=== PATIENT | male | born 1985 | race Caucasian/White ===

== ENCOUNTER 2020-05-10 21:59 | Emergency (ER) | payer SELFPAY ==
[~2020-05-10] VITALS: Ht 185.4 cm; Wt 102.1 kg
[~2020-05-10 21:59] MED LIST: ACETAMINOPHEN PO; ATIVAN1 MG PO; CEPHALEXIN500 MG PO; CLINDAMYCIN HC300 MG PO; CYCLOBENZAPRINE10 MG PO; FLEXERIL10 MG PO; HYDROCODON-ACE1 EA10 PO; IBUPROFEN800 MG PO; MEDROL4 M1 PO; MELOXICAM15 MG PO; METOPROLOL TART25 MG PO; MOBIC7.5 MG PO; NAPROXEN500 MG PO; NEURONTIN100 MG PO; NORCO 5-325 TA1 EACH PO; OMEPRAZOLE20 MG PO; ONDANSETRON ODT4 MG SL; PROMETHAZINE12.5 M1 PO; TOPROL XL25 MG PO; TRAMADOL HCL50 MG PO; TYLENOL325 MG PO; ULTRAM50 MG PO; VICODIN 5-5001 EACH PO; XANAX0.5 MG PO
--- OUTSIDE RECORDS SUMMARY | 2020-05-10 22:02 | XMS ---
PreManage Notification: LAURIE SINGH Security Bundler Events 1 event(s) in the past 18 months Most recent security events: Elopement at [facility] 05/04/2020 11:42 - Other Details: PATIENT LWBS. CRITERIA MET - Group Notification - [facility] - 2 Visits in 30 Days CARE PROVIDERS PETE ORNELAS Current PHONE: [phone] Edilia has no Care Guidelines for this patient. Sheron VISIT COUNT (12 MO.) 2 [facility] TOTAL 2 NOTE: Visits indicate total known visits. ED/UCC VISIT TRACKING (12 MO.) 05/10/2020 22:00 [facility] [place] TYPE: Emergency COMPLAINT: - MEDICAL CLEARANCE 05/04/2020 11:42 ALESS[facility]DRA [facility] [place] TYPE: Emergency COMPLAINT: - MEDICAL CLEARANCE. LEFT WITHOUT BEING SEEN! DIAGNOSES: - Procedure and treatment not carried out due to patient leavin INPATIENT VISIT TRACKING (12 MO.) No inpatient visits to display in this time frame [id number]
== END 2020-05-11 00:05 | disposition home or self-care (01) ==
LOC: ED 21:59
DX: Z00.8 Encounter for other general examination (principal); F17.200 Nicotine dependence, unspecified, uncomplicated; Z88.8 Allergy status to other drugs, medicaments and biological substances; F90.9 Attention-deficit hyperactivity disorder, unspecified type; Z79.899 Other long term (current) drug therapy; Z79.891 Long term (current) use of opiate analgesic
CPT/HCPCS: 81001; 99283

== ENCOUNTER 2020-05-20 11:06 | Emergency (ER) | payer SELFPAY ==
[~2020-05-20] VITALS: Ht 185.4 cm; Wt 102.1 kg
--- OUTSIDE RECORDS SUMMARY | 2020-05-20 11:08 | XMS ---
PreManage Notification: LAURIE SINGH Security Child And Family Counselor Events 1 event(s) in the past 18 months Most recent security events: Elopement at [facility] 05/04/2020 11:42 - Other Details: PATIENT LWBS. CRITERIA MET - Group Notification - [facility] - 2 Visits in 30 Days CARE PROVIDERS PETE ORNELASor Current PHONE: [phone] LEIGH CUEVAS Student in an Organized Health Care Current Education/Training Program PHONE: [phone] Edilia has no Care Guidelines for this patient. ERylan VISIT COUNT (12 MO.) 3 [facility] TOTAL 3 NOTE: Visits indicate total known visits. ED/UCC VISIT TRACKING (12 MO.) 05/20/2020 11:07 ALESSANDRA Valente TYPE: Emergency COMPLAINT: - MEDICATION REFILL 05/10/2020 22:00 ALESSANDRA [facility] [place] TYPE: Emergency COMPLAINT: - MEDICAL CLEARANCE DIAGNOSES: - Attention-deficit hyperactivity disorder, unspecified type - Encounter for other general examination - Nicotine dependence, unspecified, uncomplicated - Other group home (current) drug therapy - Allergy status to other drugs, medicaments and biological sub - [facility] (current) use of opiate analgesic 05/04/2020 11:42 ALESSANDRA [facility] [place] TYPE: Emergency COMPLAINT: - MEDICAL CLEARANCE. LEFT WITHOUT BEING SEEN! DIAGNOSES: - Procedure and treatment not carried out due to patient catina INPATIENT VISIT TRACKING (12 MO.) No inpatient visits to display in this time frame [id number]
[2020-05-20] MEDS ORDERED: AMPHETAMINE SAL10 MG PO (11:26)
[2020-05-20] MEDS ORDERED: DEXTROAMP-AMPHE10 MG PO (11:27)
== END 2020-05-20 12:51 | disposition home or self-care (01) ==
LOC: ED 11:06
DX: R41.89 Other symptoms and signs involving cognitive functions and awareness (principal); R46.89 Other symptoms and signs involving appearance and behavior; F90.9 Attention-deficit hyperactivity disorder, unspecified type; F17.200 Nicotine dependence, unspecified, uncomplicated; Z88.8 Allergy status to other drugs, medicaments and biological substances; Z79.899 Other long term (current) drug therapy
CPT/HCPCS: 99281

== ENCOUNTER 2020-10-13 06:31 | Emergency (ER) | payer SELFPAY ==
[~2020-10-13] VITALS: Ht 185.4 cm; Wt 106.0 kg
[~2020-10-13 06:31] MED LIST changes: +AMPHETAMINE SAL10 MG PO; +DEXTROAMP-AMPHE10 MG PO
--- OUTSIDE RECORDS SUMMARY | 2020-10-13 06:34 | XMS ---
PreManage Notification: LAURIE SINGH Security Associate Professor Of Physics Events 1 event(s) in the past 18 months Most recent security events: Elopement at [facility] 05/04/2020 11:42 - Other Details: PATIENT LWBS. CRITERIA MET - Group Notification - PDMP CARE PROVIDERS PETE ORNELASor Current PHONE: [phone] LEIGH CUEVAS Student in an Organized Health Care Current Education/Training Program PHONE: [phone] Edilia has no Care Guidelines for this patient. E.D. VISIT COUNT (12 MO.) [address] [place] [address] TOTAL 4 NOTE: Visits indicate total known visits. ED/UCC VISIT TRACKING (12 MO.) 10/13/2020 06:31 [facility]DRA [facility] [place] TYPE: Emergency COMPLAINT: - VOMITING 05/20/2020 11:07 ALESSANDRA [facility] [place] TYPE: Emergency COMPLAINT: - MEDICATION REFILL DIAGNOSES: - Other symptoms and signs involving appearance and behavior - Allergy status to other drugs, medicaments and biological substances - Other symptoms and signs involving cognitive functions and awareness - Attention-deficit hyperactivity disorder, unspecified type - Other oysterman (current) drug therapy - Nicotine dependence, unspecified, uncomplicated - Allergy status to other drugs, medicaments and biological substances 05/10/2020 22:00 ALESSANDRA [facility] [place] TYPE: Emergency COMPLAINT: - MEDICAL CLEARANCE DIAGNOSES: - Attention-deficit hyperactivity disorder, unspecified type - Encounter for other general examination - Nicotine dependence, unspecified, uncomplicated - Other oysterman (current) drug therapy - Allergy status to other drugs, medicaments and biological substances - snf (current) use of opiate analgesic - Allergy status to other drugs, medicaments and biological substances 05/04/2020 11:42 AL[facility]DRA [facility] [place] TYPE: Emergency COMPLAINT: - MEDICAL CLEARANCE. LEFT WITHOUT BEING SEEN! DIAGNOSES: - Procedure and treatment not carried out due to patient leaving prior to being seen by health care provider INPATIENT VISIT TRACKING (12 MO.) No inpatient visits to display in this time frame [id number]
[2020-10-13] MEDS ORDERED: HYDROCODON-ACE1 EA11 PO (11:31)
[2020-10-13] MEDS ORDERED: ONDANSETRON ODT8 MG PO (11:31)
== END 2020-10-13 12:39 | disposition home or self-care (01) ==
LOC: ED 06:31
DX: R19.09 Other intra-abdominal and pelvic swelling, mass and lump (principal); F17.200 Nicotine dependence, unspecified, uncomplicated; Z88.8 Allergy status to other drugs, medicaments and biological substances; Z79.899 Other long term (current) drug therapy
CPT/HCPCS: 74177; 80053; 81001; 83690; 85025; 96375; 96376; 99284-25; A9270; J1170; J2405; J7030; Q9967

== ENCOUNTER 2021-01-23 10:33 | Emergency (ER) | payer OTHER ==
[~2021-01-23] VITALS: Ht 185.4 cm; Wt 102.4 kg
[~2021-01-23 10:33] MED LIST changes: +HYDROCODON-ACE1 EA11 PO; +ONDANSETRON ODT8 MG PO
--- OUTSIDE RECORDS SUMMARY | 2021-01-23 10:36 | XMS ---
PreManage Notification: LAURIE SINGH Security Technical Support Coordinator Events 1 event(s) in the past 18 months Most recent security events: Elopement at [facility] 05/04/2020 11:42 - Other Details: PATIENT LWBS. CRITERIA MET - PDMP - Group Notification CARE PROVIDERS CINTIA POWELL W Physician Diplomatic Officer: Medical 10/14/2020-Veda Mejia PHONE: Unknown PETE ORNELAS Current PHONE: [phone] LEIGH CUEVAS Nurse Practitioner: Primary Care Current PHONE: [phone] Edilia has no Care Guidelines for this patient. E.D. VISIT COUNT (12 MO.) [address] [facility] TOTAL 5 NOTE: Visits indicate total known visits. ED/UCC VISIT TRACKING (12 MO.) 01/23/2021 10:34 [facility]DRA [facility] [place] TYPE: Emergency COMPLAINT: - ANKLE INJ 10/13/2020 06:31 AL[facility]DRA [facility] [place] TYPE: Emergency COMPLAINT: - VOMITING DIAGNOSES: - Other intra-abdominal and pelvic swelling, mass and lump - Nicotine dependence, unspecified, uncomplicated - Allergy status to other drugs, medicaments and biological substances - Upper abdominal pain, unspecified - Other soubrette (current) drug therapy 05/20/2020 11:07 AL[facility]DRA [facility] [place] TYPE: Emergency COMPLAINT: - MEDICATION REFILL DIAGNOSES: - Other symptoms and signs involving appearance and behavior - Allergy status to other drugs, medicaments and biological substances - Other symptoms and signs involving cognitive functions and awareness - Attention-deficit hyperactivity disorder, unspecified type - Other chcf (current) drug therapy - Nicotine dependence, unspecified, uncomplicated - Allergy status to other drugs, medicaments and biological substances 05/10/2020 22:00 [facility]ANDRA [facility] [place] TYPE: Emergency COMPLAINT: - MEDICAL CLEARANCE DIAGNOSES: - Attention-deficit hyperactivity disorder, unspecified type - Encounter for other general examination - Nicotine dependence, unspecified, uncomplicated - Other chcf (current) drug therapy - Allergy status to other drugs, medicaments and biological substances - prison (current) use of opiate analgesic - Allergy [...] visits to display in this time frame [email or web address]
[2021-01-23] MEDS ORDERED: HYDROCODON-ACE1 EA11 PO (11:27)
[2021-01-23] MEDS ORDERED: CRUTCH1 EACH MISC (11:27)
== END 2021-01-23 11:40 | disposition home or self-care (01) ==
LOC: ED 10:33
DX: S82.832A Other fracture of upper and lower end of left fibula, initial encounter for closed fracture (principal); W19.XXXA Unspecified fall, initial encounter; F17.200 Nicotine dependence, unspecified, uncomplicated; Z88.8 Allergy status to other drugs, medicaments and biological substances
CPT/HCPCS: 73610; 99283-25; A9270

== ENCOUNTER 2021-01-25 12:15 | Emergency (ER) | payer OTHER ==
[~2021-01-25] VITALS: Ht 185.4 cm; Wt 102.4 kg
[~2021-01-25 12:15] MED LIST changes: +CRUTCH1 EACH MISC
--- OUTSIDE RECORDS SUMMARY | 2021-01-25 12:24 | XMS ---
PreManage Notification: LAURIE SINGH Security Cotton Picker Operator Events 1 event(s) in the past 18 months Most recent security events: Elopement at [facility] 05/04/2020 11:42 - Other Details: PATIENT LWBS. CRITERIA MET - [facility] - 2 Visits in 30 Days - Group Notification CARE PROVIDERS CINTIA POWELL W Physician University Relations Vice President: Medical 10/14/2020-Veda Mejia PHONE: Unknown PETE ORNELAS Current PHONE: [phone] LEIGH CUEVAS Nurse Practitioner: Primary Care Current PH[facility]: [phone] [facility]Current PHONE: [phone] Edilia has no Care Guidelines for this patient. ERylan VISIT COUNT (12 MO.) 6 ALESSANDRA [facility] TOTAL 6 NOTE: Visits indicate total known visits. ED/UCC VISIT TRACKING (12 MO.) 01/25/2021 12:15 [facility]DRA [facility] [place] TYPE: Emergency COMPLAINT: - L UPPER LEG PAIN 01/23/2021 10:34 ALESSANDRA Gaona [place] TYPE: Emergency COMPLAINT: - ANKLE INJ 10/13/2020 06:[address] [facility] [place] TYPE: Emergency COMPLAINT: - VOMITING DIAGNOSES: - Other intra-abdominal and pelvic swelling, mass and lump - Nicotine dependence, unspecified, uncomplicated - Allergy status to other drugs, medicaments and biological substances - Upper abdominal pain, unspecified - Other oil heaterman (current) drug therapy 05/20/2020 11:[address] [facility] [place] TYPE: Emergency COMPLAINT: - MEDICATION REFILL DIAGNOSES: - Other symptoms and signs involving appearance and behavior - Allergy status to other drugs, medicaments and biological substances - Other symptoms and signs involving cognitive functions and awareness - Attention-deficit hyperactivity disorder, unspecified type - Other skilled nursing (current) drug therapy - Nicotine dependence, unspecified, uncomplicated - Allergy status to other drugs, medicaments and biological substances 05/10/2020 22:00 AL[facility]ANDRA [facility] [place] TYPE: Emergency COMPLAINT: - MEDICAL CLEARANCE DIAGNOSES: - Attention-deficit hyperactivity disorder, unspecified type - Encounter for other general examination - Nicotine dependence, unspecified, uncomplicated - Other oil heaterman (current) drug therapy - Allergy status to other drugs, medicaments and biological substances - skilled nursing (current) use of opiate analgesic - Allergy [...] visits to display in this time frame [id number]
[2021-01-25] MEDS ORDERED: HYDROCODON-ACE1 EA11 PO (14:44)
== END 2021-01-25 14:50 | disposition home or self-care (01) ==
LOC: ED 12:15
DX: S82.832D Other fracture of upper and lower end of left fibula, subsequent encounter for closed fracture with routine healing (principal); F17.200 Nicotine dependence, unspecified, uncomplicated; Z88.8 Allergy status to other drugs, medicaments and biological substances
CPT/HCPCS: 99283

== ENCOUNTER 2021-02-04 11:33 | Emergency (ER) | payer OTHER ==
[~2021-02-04] VITALS: Ht 185.4 cm; Wt 102.4 kg
--- OUTSIDE RECORDS SUMMARY | 2021-02-04 11:36 | XMS ---
PreManage Notification: LAURIE SINGH Security Clinical Educator Events 1 event(s) in the past 18 months Most recent security events: Elopement at [facility] 05/04/2020 11:42 - Other Details: PATIENT LWBS. CRITERIA MET - PDMP - Group Notification - [facility] - 2 Visits in 30 Days CARE PROVIDERS CINTIA POWELL W Physician Director Of Strategic Sourcing: Medical 10/14/2020-Veda Mejia PHONE: Unknown PETE ORNELAS Current PHONE: [phone] LEIGH CUEVAS Nurse Practitioner: Primary Care Current PHONE: [phone] [facility]Current PHONE: [phone] Edilia has no Care Guidelines for this patient. ERylan VISIT COUNT (12 MO.) 7 ALESSANDRA [facility] TOTAL 7 NOTE: Visits indicate total known visits. ED/UCC VISIT TRACKING (12 MO.) 02/04/2021 11:35 ALESSANDRA Gaona [place] TYPE: Emergency COMPLAINT: - BROKEN LEG PAIN 01/25/2021 12:[address] [facility] [place] TYPE: Emergency COMPLAINT: - L UPPER LEG PAIN DIAGNOSES: - Pain in left ankle and joints of left foot - Other fracture of upper and lower end of left fibula, subsequent encounter for closed fracture with routine healing - Nicotine dependence, unspecified, uncomplicated - Allergy status to other drugs, medicaments and biological substances 01/23/2021 10:[address] [facility] [place] TYPE: Emergency COMPLAINT: - ANKLE INJ DIAGNOSES: - Pain in left ankle and joints of left foot - Nicotine dependence, unspecified, uncomplicated - Unspecified fall, initial encounter - Other fracture of upper and lower end of left fibula, initial encounter for closed fracture - Allergy status to other drugs, medicaments and biological substances 10/13/2020 06:[address] [facility] [place] TYPE: Emergency COMPLAINT: - VOMITING DIAGNOSES: - Other intra-abdominal and pelvic swelling, mass and lump - Nicotine dependence, unspecified, uncomplicated - Allergy status to other drugs, medicaments and biological substances - Upper abdominal pain, unspecified - Other usp (current) drug therapy 05/20/2020 11:07 ALESSANDRA [facility] [place] TYPE: Emergency COMPLAINT: - MEDICATION REFILL DIAGNOSES: - Other symptoms and signs involving appearance and behavior - Allergy status to other drugs, medicaments and biological substances - Other symptoms and signs involving cognitive functions and awareness - Attention-deficit hyperactivity disorder, unspecified type - Other usp (current) drug therapy - Nicotine dependence, unspecified, uncomplicated - Allergy status to other drugs, medicaments and biological substances 05/10/2020 22:00 ALESSANDRA [facility] [place] TYPE: Emergency COMPLAINT: - MEDICAL CLEARANCE DIAGNOSES: - Attention-deficit hyperactivity disorder, unspecified type - Encounter for other general examination - Nicotine dependence, unspecified, uncomplicated - Other usp (current) drug therapy - Allergy status to other drugs, medicaments and biological substances - lobsterman (current) use of opiate analgesic - Allergy [...] visits to display in this time frame [id number]
[2021-02-04] MEDS ORDERED: HYDROCODON-ACE1 EA10 PO (12:22)
== END 2021-02-04 12:35 | disposition home or self-care (01) ==
LOC: ED 11:33
DX: S82.892A Other fracture of left lower leg, initial encounter for closed fracture (principal); M25.512 Pain in left shoulder; F17.200 Nicotine dependence, unspecified, uncomplicated; V89.2XXA Person injured in unspecified motor-vehicle accident, traffic, initial encounter
CPT/HCPCS: 99283

== ENCOUNTER 2021-03-19 23:58 | Emergency (ER) | payer OTHER ==
[~2021-03-19] VITALS: Ht 185.4 cm; Wt 104.6 kg
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
[2021-03-20] MEDS ORDERED: ONDANSETRON ODT4 MG PO (02:00)
[2021-03-20] MEDS ORDERED: CAPSAICIN60 GM TOP (02:00)
[2021-03-20] MEDS ORDERED: MAALOX ADVANCE1 EACH PO (02:04)
--- NOTE | 2021-03-21 12:54 | EKG ---
[facility] [address] [place] [address] Signed Normal sinus rhythm with sinus arrhythmia Normal ECG No previous ECGs available Confirmed by RASHEEDA HENDRIX MD ([id number]) on 03/21/2021 12:54:37 PM Electronically Signed By: RASHEEDA HENDRIX MD 03/21/21 1254 PATIENT NAME: LAURIE SINGH Electrocardiogram DATE OF : 83 PHYSICIAN: RASHEEDA HENDRIX MD REPORT #: [id number] REPORT IS CONFIDENTIAL AND NOT TO BE RELEASED WITHOUT AUTHORIZATION
== END 2021-03-20 03:33 | disposition home or self-care (01) ==
LOC: ED 23:58
DX: R10.84 Generalized abdominal pain (principal); R11.2 Nausea with vomiting, unspecified; F17.200 Nicotine dependence, unspecified, uncomplicated; Z88.8 Allergy status to other drugs, medicaments and biological substances
CPT/HCPCS: 80053; 83690; 83735; 85025; 93005; 93010; 96374; 96375; 99284-25; J1630; J2405; J7121

== ENCOUNTER 2024-07-24 20:26 | Emergency (ER) | payer SELFPAY ==
[~2024-07-24] VITALS: Ht 185.4 cm; Wt 104.0 kg
[~2024-07-24 20:26] MED LIST changes: +CAPSAICIN60 GM TOP; +MAALOX ADVANCE1 EACH PO; +ONDANSETRON ODT4 MG PO; +PROTONIX40 MG PO
--- OUTSIDE RECORDS SUMMARY | 2024-07-24 20:32 | XMS ---
PreManage Notification: LAURIE SINGH Security Fruit Inspector Events No recent Security Events currently on file CRITERIA MET - Group Notification CARE PROVIDERS [facility] 01/25/2021-Current PHONE: Unknown CINTIA POWELL Physician Floor Sander: Medical 10/14/2020-Current PHONE: Unknown PETE ORNELAS Counselor: Mental Health Current PHONE: [phone] Edilia has no Care Guidelines for this patient. E.D. VISIT COUNT (12 MO.) 1 ALESSANDRA Gaona TOTAL 1 NOTE: Visits indicate total known visits. ED/UCC VISIT TRACKING (12 MO.) 07/24/2024 20:26 ALESSANDRA Ruiz [place] TYPE: Emergency COMPLAINT: - LT ARM PAIN INPATIENT VISIT TRACKING (12 MO.) No inpatient visits to display in this time frame [id number]
[2024-07-24] MEDS ORDERED: DEXTROAMP-AMPHET5 MG PO (21:50)
[2024-07-25 01:44] VITALS: BP 141/71
== END 2024-07-25 01:46 | disposition home or self-care (01) ==
LOC: ED 20:26
DX: S40.022A Contusion of left upper arm, initial encounter (principal); F17.200 Nicotine dependence, unspecified, uncomplicated; Z79.899 Other long term (current) drug therapy; W19.XXXA Unspecified fall, initial encounter
CPT/HCPCS: 36415; 73060; 85379; 93971; 99284-25

== ENCOUNTER 2025-05-08 10:02 | Emergency (ER) | payer OTHER ==
[~2025-05-08] VITALS: Ht 185.4 cm; Wt 105.5 kg
[~2025-05-08 10:02] MED LIST changes: +DEXTROAMP-AMPHET5 MG PO
--- OUTSIDE RECORDS SUMMARY | 2025-05-08 10:09 | XMS ---
PreManage Notification: LAURIE SINGH Security Director Of Radio Services Events No recent Security Events currently on file CRITERIA MET - Group Notification CARE PROVIDERS [facility] 01/25/2021-Current PHONE: Unknown CINTIA POWELL Physician Branch Associate: Medical 10/14/2020-Current PHONE: Unknown -, [facility]ist: Balance Recesser Veda [place] PHONE: [phone] PETE ORNELAS Counselor: Mental Health Current PHONE: [phone] Edilia has no Care Guidelines for this patient. Sheron VISIT COUNT (12 MO.) 2 ALESSANDRA Gaona TOTAL 2 NOTE: Visits indicate total known visits. ED/UCC VISIT TRACKING (12 MO.) 05/08/2025 10:02 ALESSANDRA [facility] [place] TYPE: Emergency COMPLAINT: - VOMITING 07/24/2024 20:26 ALESSANDRA [facility] [place] TYPE: Emergency COMPLAINT: - LT ARM PAIN DIAGNOSES: - Contusion of left upper arm, initial encounter - Nicotine dependence, unspecified, uncomplicated - Other client sales and service officer (current) drug therapy - Pain in left arm - Unspecified fall, initial encounter INPATIENT VISIT TRACKING (12 MO.) No inpatient visits to display in this time frame [id number]
[2025-05-08] MEDS ORDERED: SODIUM CHLORIDE 0.9% 1,000 ML IV ONE (10:30)
[2025-05-08] MEDS ORDERED: HYDROmorphone HCL 1 MG/ML SYR IV PRN (10:30)
[2025-05-08] MEDS ORDERED: PANTOPRAZOLE SODIUM 40 MG/10 ML VIAL IV ONE (10:30)
[2025-05-08 10:38] LABS: BASOPHILS 0.5 % (0.2-1.2); EOSINOPHILS 0.6 % (0.8-7.0); LYMPHOCYTES 7.8 % (21.8-53.1); MCH 31.6 PG (25.7-32.2); MCHC 35.5 g/dL (32.3-36.5); MCV 89.0 fL (79.0-92.2); MONOCYTES 5.1 % (5.3-12.2); NEUTROPHILS 85.6 % (34.0-67.9); RBC 5.66 M/uL (4.63-6.08)
[2025-05-08 10:54] LABS: ALT (SGPT) 17.0 U/L (14-59); AST (SGOT) 21.0 U/L (15-37); GLOMERULAR FILTRATION RATE,EST 106.0 mL/min (>60); PROTEIN, TOTAL 8.0 g/dL (6.4-8.2); UREA NITROGEN 21.0 mg/dL (7-18)
[2025-05-08 13:50] LABS: BLOOD/HGB, URINE NEGATIVE (Negative); KETONE, URINE TRACE (Negative); LEUK ESTERASE, URINE NEGATIVE (negative); NITRITE, URINE NEGATIVE (negative)
[2025-05-08] MEDS ORDERED: LORazepam 2 MG/ML VIAL IV ONE (14:15)
[2025-05-08] MEDS ORDERED: REGLAN10 MG PO (15:24)
[2025-05-08] MEDS ORDERED: HYDROCODON-ACE1 EA11 PO (15:24)
[2025-05-08] MEDS ORDERED: ONDANSETRON ODT8 MG PO (15:24)
[2025-05-08 15:58] VITALS: BP 122/78
== END 2025-05-08 15:59 | disposition home or self-care (01) ==
LOC: ED 10:02
PROVIDERS: Emergency Medicine
DX: R10.10 Upper abdominal pain, unspecified (principal); F17.200 Nicotine dependence, unspecified, uncomplicated; Z88.8 Allergy status to other drugs, medicaments and biological substances
CPT/HCPCS: 36415; 74177; 80053; 81003; 83690; 85025; 96361; 96374; 96375; 96376; 99284-25; J1171; J1790; J2060; J2405; J2470; J7030; Q9967

== ENCOUNTER 2025-07-07 07:44 | Emergency (ER) | payer OTHER ==
[~2025-07-07] VITALS: Ht 185.4 cm; Wt 109.5 kg
[~2025-07-07 07:44] MED LIST changes: +REGLAN10 MG PO
--- OUTSIDE RECORDS SUMMARY | 2025-07-07 07:51 | XMS ---
PreManage Notification: LAURIE SINGH Security Over The Road Driver Events No recent Security Events currently on file CRITERIA MET - Group Notification CARE PROVIDERS [facility] 01/25/2021-Current PHONE: Unknown CINTIA POWELL Physician Security Software Engineer: Medical 10/14/2020-Current PHONE: Unknown -, [facility]ist: Rcis Veda [place] PHONE: [phone] PETE ORNELAS Counselor: Mental Health Current PHONE: [phone] [facility] Clinic/Center: Primary Care [facility] PHONE: [phone] Edilia has no Care Guidelines for this patient. Sheron VISIT COUNT (12 MO.) 3 [facility] TOTAL 3 NOTE: Visits indicate total known visits. ED/UCC VISIT TRACKING (12 MO.) 07/07/2025 07:45 [facility]ESSANDRA [facility] [place] TYPE: Emergency COMPLAINT: - VOMITING 05/08/2025 10:02 ALESSANDRA [facility] [place] TYPE: Emergency COMPLAINT: - VOMITING DIAGNOSES: - Allergy status to other drugs, medicaments and biological substances - Nicotine dependence, unspecified, uncomplicated - Upper abdominal pain, unspecified 07/24/2024 20:26 [facility]A [facility] [place] TYPE: Emergency COMPLAINT: - LT ARM PAIN DIAGNOSES: - Contusion of left upper arm, initial encounter - Nicotine dependence, unspecified, uncomplicated - Other senior living (current) drug therapy - Pain in left arm - Unspecified fall, initial encounter INPATIENT VISIT TRACKING (12 MO.) No inpatient visits to display in this time frame [id number]
[2025-07-07] MEDS ORDERED: SODIUM CHLORIDE 0.9% 1,000 ML IV ONE (08:00)
[2025-07-07] MEDS ORDERED: HYDROmorphone HCL 1 MG/ML SYR IV PRN (08:00)
[2025-07-07 08:21] LABS: BASOPHILS 0.5 % (0.2-1.2); EOSINOPHILS 2.1 % (0.8-7.0); LYMPHOCYTES 14.1 % (21.8-53.1); MCH 31.8 PG (25.7-32.2); MCHC 34.8 g/dL (32.3-36.5); MCV 91.4 fL (79.0-92.2); MONOCYTES 6.7 % (5.3-12.2); NEUTROPHILS 76.2 % (34.0-67.9); RBC 5.34 M/uL (4.63-6.08)
[2025-07-07 08:44] LABS: ALT (SGPT) 11.0 U/L (14-59); AST (SGOT) 15.0 U/L (15-37); GLOMERULAR FILTRATION RATE,EST 112.0 mL/min (>60); PROTEIN, TOTAL 7.4 g/dL (6.4-8.2); UREA NITROGEN 16.0 mg/dL (7-18)
[2025-07-07 09:28] LABS: BLOOD/HGB, URINE NEGATIVE (Negative); KETONE, URINE NEGATIVE (Negative); LEUK ESTERASE, URINE NEGATIVE (negative); NITRITE, URINE NEGATIVE (negative)
[2025-07-07] MEDS ORDERED: PROCHLORPERAZINE EDISYLATE 10 MG/2 ML VIAL IV ONE (09:45)
[2025-07-07] MEDS ORDERED: HYDROmorphone HCL 1 MG/ML SYR IV ONE (11:30)
[2025-07-07] MEDS ORDERED: ONDANSETRON ODT4 MG PO (12:36)
[2025-07-07 12:41] VITALS: BP 115/69
== END 2025-07-07 12:41 | disposition home or self-care (01) ==
LOC: ED 07:44
PROVIDERS: Emergency Medicine
DX: R11.2 Nausea with vomiting, unspecified (principal); R19.7 Diarrhea, unspecified; F17.200 Nicotine dependence, unspecified, uncomplicated; Z88.8 Allergy status to other drugs, medicaments and biological substances
CPT/HCPCS: 36415; 74177; 80053; 81003; 83690; 85025; 96361; 96374; 96375; 96376; 99284-25; J0780; J1171; J1200; J2405; J7030; Q9967

== ENCOUNTER 2025-07-11 16:24 | Emergency (ER) | payer OTHER ==
[~2025-07-11] VITALS: Ht 185.4 cm; Wt 110.3 kg
--- NOTE | ~2025-07-11 | EKG ---
[facility] [address] [place], [place] [address] Draft EK completed, results pending confirmation PATIENT NAME: SAMANTHALAURIENILSON ESCOTO Electrocardiogram DATE OF : 83 PHYSICIAN: PRELIMINARY REPORT #: [id number] REPORT IS CONFIDENTIAL AND NOT TO BE RELEASED WITHOUT AUTHORIZATION
--- OUTSIDE RECORDS SUMMARY | 2025-07-11 16:31 | XMS ---
PreManage Notification: LAURIE SINGH Security Painting Manager Events No recent Security Events currently on file CRITERIA MET - Group Notification - [facility] - 2 Visits in 30 Days CARE PROVIDERS [facility] 01/25/2021-Current PHONE: Unknown CINTIA POWELL Physician Radial Drill Press Operator: Medical 10/14/2020-Current PHONE: Unknown -, [facility]ist: Prom Burn Off Operator Veda [place] PHONE: [phone] PETE ORNELAS Counselor: Mental Health Current PHONE: [phone] [facility]IMARY Clinic/Center: Primary Care [facility] PHONE: [phone] Edilia has no Care Guidelines for this patient. Sheron VISIT COUNT (12 MO.) [address] [facility] TOTAL 4 NOTE: Visits indicate total known visits. ED/UCC VISIT TRACKING (12 MO.) 07/11/2025 16:24 [facility] [place] TYPE: Emergency COMPLAINT: - VOMITIN 07/07/2025 07:45 [facility]DR[facility] [place] TYPE: Emergency COMPLAINT: - VOMITING DIAGNOSES: - Allergy status to other drugs, medicaments and biological substances - Diarrhea, unspecified - Nausea with vomiting, unspecified - Nicotine dependence, unspecified, uncomplicated 05/08/2025 10:[address] [facility] [place] TYPE: Emergency COMPLAINT: - VOMITING DIAGNOSES: - Allergy status to other drugs, medicaments and biological substances - Nicotine dependence, unspecified, uncomplicated - Upper abdominal pain, unspecified 07/24/2024 20:[address] [facility] [place] TYPE: Emergency COMPLAINT: - LT ARM PAIN DIAGNOSES: - Contusion of left upper arm, initial encounter - Nicotine dependence, unspecified, uncomplicated - Other halfway (current) drug therapy - Pain in left arm - Unspecified fall, initial encounter INPATIENT VISIT TRACKING (12 MO.) No inpatient visits to display in this time frame [id number]
[2025-07-11] MEDS ORDERED: SODIUM CHLORIDE 0.9% 1,000 ML IV PRN (18:00)
[2025-07-11 18:13] LABS: BASOPHILS 0.4 % (0.2-1.2); EOSINOPHILS 1.1 % (0.8-7.0); LYMPHOCYTES 8.0 % (21.8-53.1); MCH 31.3 PG (25.7-32.2); MCHC 34.2 g/dL (32.3-36.5); MCV 91.4 fL (79.0-92.2); MONOCYTES 6.7 % (5.3-12.2); NEUTROPHILS 83.5 % (34.0-67.9); RBC 5.12 M/uL (4.63-6.08)
[2025-07-11] MEDS ORDERED: HYDROmorphone HCL 1 MG/ML SYR IV ONE (18:15)
[2025-07-11] MEDS ORDERED: PROCHLORPERAZINE EDISYLATE 10 MG/2 ML VIAL IV ONE (18:30)
[2025-07-11 18:33] LABS: ALT (SGPT) 22.0 U/L (14-59); AST (SGOT) 15.0 U/L (15-37); GLOMERULAR FILTRATION RATE,EST 101.0 mL/min (>60); PROTEIN, TOTAL 7.6 g/dL (6.4-8.2); UREA NITROGEN 15.0 mg/dL (7-18)
[2025-07-11] MEDS ORDERED: PROMETHAZINE HC25 M1 PO (19:16)
[2025-07-11 19:27] VITALS: BP 120/79
== END 2025-07-11 19:29 | disposition home or self-care (01) ==
LOC: ED 16:24
PROVIDERS: Emergency Medicine
DX: R11.2 Nausea with vomiting, unspecified (principal); R10.9 Unspecified abdominal pain; F17.200 Nicotine dependence, unspecified, uncomplicated; R19.7 Diarrhea, unspecified
CPT/HCPCS: 36415; 80053; 85025; 93005; 93010; 96361; 96374; 96375; 99284-25; J0780; J1171; J1200; J2405; J7030